=== PATIENT | female | born 1975 | race African-American/Black ===

== ENCOUNTER 2021-12-29 13:49 | Emergency (ER) | payer MEDICAID ==
[~2021-12-29] VITALS: Ht 165.1 cm; Wt 81.0 kg
[2021-12-29] MEDS ORDERED: IBUPROFEN 600MG TABLET PO STA (15:40)
[2021-12-29] MEDS ORDERED: DICL75TA5 PO (15:50)
[2021-12-29 15:57] VITALS: BP 119/77
== END 2021-12-29 15:58 | disposition home or self-care (01) ==
LOC: ER 13:49
DX: M25.552 Pain in left hip (principal); R51.9 Headache, unspecified; I10 Essential (primary) hypertension; M19.90 Unspecified osteoarthritis, unspecified site; Z88.0 Allergy status to penicillin
CPT/HCPCS: 99283

== ENCOUNTER 2023-05-25 00:42 | Emergency (ER) | payer MEDICAID, OTHER ==
[~2023-05-25] VITALS: Ht 165.1 cm; Wt 120.1 kg
[~2023-05-25 00:42] MED LIST: DICL75TA5 PO
[2023-05-25 01:02] VITALS: BP 109/68; PULSE 85; RESP 16; TEMP 98; O2SAT 98
[2023-05-25 01:36] LABS: BASOPHILS % 0.4 % (0.0-2.0); EOSINOPHILS % 1.6 % (0.0-5.0); HEMATOCRIT. 34.6 % (36.0-48.0); HEMOGLOBIN. 11.3 g/dL (12.0-16.0); LYMPHOCYTES % 28.4 % (20.0-50.0); MEAN CORPUSCULAR HGB CONC 32.7 g/dL (31.0-37.0); MEAN CORPUSCULAR VOLUME 82.6 fL (81.0-99.0); MEAN PLATELET VOLUME 9.1 fl (7.4-10.4); MONOCYTES % 8.1 % (2.0-8.0); NEUTROPHILS % 61.5 % (40.0-76.0); PLATELET 265 x1000/uL (130-400); RED BLOOD CELL COUNT 4.18 mill/uL (4.2-5.4); RED CELL DISTRIBUTION WIDTH 15.2 % (11.6-14.6); WHITE BLOOD COUNT 12.2 x1000/uL (4.5-11.0)
[2023-05-25 01:40] LABS: CHLORIDE 104 mEq/L (98-107); INDEX HEMOLYSI 1 (1-3); INDEX ICTERIC 1 (1-4); INDEX LIPEMIC 1 (1-3); POTASSIUM 4.1 mEq/L (3.5-5.1); SODIUM 138 mEq/L (136-145)
[2023-05-25 01:50] LABS: ALANINE AMINOTRANSFERASE 14 IU/L (13-61); ALBUMIN 3.1 g/dL (3.4-5.0); ASPARTATE AMINOTRANSFERASE 11 IU/L (15-37); BILIRUBIN TOTAL 0.3 mg/dL (0.1-1.0); CALCIUM 8.8 mg/dL (8.5-10.1); CREATININE 1.3 mg/dL (0.6-1.3); GLUCOSE 94 mg/dL (70-105); PROTEIN TOTAL 8.2 g/dL (6.0-8.3); UREA NITROGEN BLOOD 17 mg/dL (7-21)
[2023-05-25 01:52] LABS: CLARITY URINE CLEAR (CLEAR); COLOR URINE YELLOW (YELLOW); GLUCOSE URINE NEGATIVE (NEGATIVE); KETONES URINE NEGATIVE (NEGATIVE); LEUKOCYTE ESTERASE URINE NEGATIVE (NEGATIVE); NITRITE URINE NEGATIVE (NEGATIVE); OCCULT BLOOD URINE NEGATIVE (NEGATIVE); PH URINE 5.5 (4.5-8.0); PROTEIN URINE NEGATIVE (NEGATIVE); SPECIFIC GRAVITY URINE 1.015 (1.005-1.030); UROBILINOGEN URINE 0.2 E.U./dL (0.2-1.0)
[2023-05-25 02:06] LABS: TROPONIN I HIGH SENSITIVITY < 4 ng/L (<54)
[2023-05-25] MEDS ORDERED: PROT20 MT (04:14)
[2023-05-25] MEDS ORDERED: ONDA4TAB50 MT (04:14)
[2023-05-25 11:42] LABS: CARBON DIOXIDE 24 mEq/L (21-32)
== END 2023-05-25 04:38 | disposition home or self-care (01) ==
LOC: ER 00:42
DX: R10.9 Unspecified abdominal pain (principal); I10 Essential (primary) hypertension; Z88.0 Allergy status to penicillin
CPT/HCPCS: 36415; 80053; 81003; 81025; 84484; 85025; 93005; 99284

== ENCOUNTER 2025-05-03 12:48 | Emergency (ER) | payer OTHER ==
[~2025-05-03] VITALS: Ht 167.6 cm; Wt 100.0 kg
[~2025-05-03 12:48] MED LIST changes: +ONDA4TAB50 MT; +PROT20 MT
[2025-05-03 12:50] VITALS: BP 114/88; PULSE 90; RESP 18; TEMP 36.6; O2SAT 99
[2025-05-03] MEDS ORDERED: FAMO-135 MT (13:45)
[2025-05-03] MEDS ORDERED: LOPE2CAP MT (13:45)
[2025-05-03] MEDS: LOPERAMIDE HCL 2MG CAPSULE PO ONE (14:12)
[2025-05-03] MEDS: FAMOTIDINE 20MG TABLET PO ONE (14:12)
== END 2025-05-03 14:13 | disposition home or self-care (01) ==
LOC: ER 12:58
DX: R19.7 Diarrhea, unspecified (principal); M19.90 Unspecified osteoarthritis, unspecified site; I10 Essential (primary) hypertension; Z79.899 Other long term (current) drug therapy; Z90.49 Acquired absence of other specified parts of digestive tract; Z88.0 Allergy status to penicillin
CPT/HCPCS: 99283